=== PATIENT | female | born 1990 | race Two or more races ===

== ENCOUNTER → 2024-02-02 | Outpatient (REF) | payer OTHER | LOC: M PLALAB 14:43 | PROVIDERS: ATTEND Advanced Practice Midwife | DX: O26.899 Other specified pregnancy related conditions, unspecified trimester (principal); R31.9 Hematuria, unspecified; Z3A.00 Weeks of gestation of pregnancy not specified ==

== ENCOUNTER → 2024-02-14 | Outpatient (CLI) | payer OTHER ==
[~2024-02-14] MED LIST: BREAMIS10 MC; PRENTAB9 PO; VENTAER INH
[2024-02-14 15:19] LABS: HEMATOCRIT 36.2 % (36.0-47.0); HEMOGLOBIN 11.9 g/dl (12.0-15.5); MEAN CORPUSCULAR HEMOGLOBIN 28.2 pg (27.0-33.0); MEAN CORPUSCULAR HGB CONC 32.9 g/dl (32.0-36.5); MEAN CORPUSCULAR VOLUME 85.8 fl (80.0-96.0); PLATELET COUNT, AUTOMATED 290 10^3/uL (150-450); RED BLOOD COUNT 4.22 10^6/uL (4.00-5.40); WHITE BLOOD COUNT 13.6 10^3/uL (4.0-10.0)
[2024-02-14 16:22] LABS: HIV 1&2 SCREEN NEGATIVE (NEGATIVE)
[2024-02-14 16:31] LABS: HEPATITIS C VIRUS ABY INDEX 0.02 INDEX (<0.8)
[2024-02-14 19:06] LABS: GC DNA AMPLIFICATION NEGATIVE (NEGATIVE)
== END ==
LOC: M PLALAB 12:57
PROVIDERS: ATTEND Advanced Practice Midwife
DX: O09.512 Supervision of elderly primigravida, second trimester (principal)

== ENCOUNTER 2024-02-26 13:52 | Outpatient (CLI) | payer OTHER ==
[~2024-02-26] VITALS: Ht 157.5 cm; Wt 84.4 kg
[2024-02-26] MEDS ORDERED: PRENTAB9 PO (14:13)
[2024-02-26 14:15] VITALS: BP 127/71
[2024-02-26] MEDS ORDERED: HOME MED LIST COMPLETE! XX SCH (14:15)
[2024-02-26] MEDS ORDERED: BREAMIS10 MC (17:44)
[2024-02-26] MEDS ORDERED: VENTAER INH (17:44)
== END 2024-02-26 14:55 | disposition home or self-care (01) ==
LOC: M LDO 13:52
PROVIDERS: ATTEND Advanced Practice Midwife
DX: O26.892 Other specified pregnancy related conditions, second trimester (principal); O09.512 Supervision of elderly primigravida, second trimester; R06.02 Shortness of breath; R06.2 Wheezing; Z3A.21 21 weeks gestation of pregnancy
CPT/HCPCS: 87486; 87581; 87633; 87798; 94640; 99284; G0463

== ENCOUNTER 2024-02-26 15:02 | Emergency (ER) | payer OTHER ==
[~2024-02-26] VITALS: Ht 157.5 cm; Wt 84.0 kg
[~2024-02-26 15:02] MED LIST changes: -BREAMIS10 MC; -VENTAER INH
[2024-02-26] MEDS: IPRATROPIUM 0.5MG/ALBUTEROL 2.5MG INH SOL UD 3ML (DUONEB) NEB ONE (16:56)
[2024-02-26] MEDS ORDERED: BREAMIS10 MC (17:44)
[2024-02-26] MEDS ORDERED: VENTAER INH (17:44)
[2024-02-26 17:45] VITALS: BP 155/80; TEMP 98.7; O2SAT 99
== END 2024-02-26 17:51 | disposition home or self-care (01) ==
LOC: M ED 15:02
DX: O99.512 Diseases of the respiratory system complicating pregnancy, second trimester (principal); J20.9 Acute bronchitis, unspecified; R06.2 Wheezing; Z3A.21 21 weeks gestation of pregnancy; Z79.52 Long term (current) use of systemic steroids; Z79.899 Other long term (current) drug therapy

== ENCOUNTER 2024-03-15 14:18 | Outpatient (CLI) | payer OTHER ==
[~2024-03-15] VITALS: Ht 157.5 cm; Wt 85.9 kg
[~2024-03-15 14:18] MED LIST changes: +BREAMIS10 MC; +VENTAER INH
[2024-03-15 14:30] VITALS: BP 141/87
[2024-03-15] MEDS: LACTATED RINGER'S 1000 ML IV ONE (15:00)
[2024-03-15] MEDS: KETOROLAC 30 MG/ML 1ML VIAL IV ONE (15:07)
[2024-03-15 15:19] VITALS: BP 121/63
[2024-03-15 15:31] LABS: BASO # 0.1 10^3/uL (0.0-0.2); BASO % 0.3 % (0.0-1.0); EOS # 0.3 10^3/uL (0.0-0.5); EOS % 1.5 % (0.0-3.0); HEMOGLOBIN 11.7 g/dl (12.0-15.5); LYMPH # 2.2 10^3/uL (1.5-5.0); LYMPH % 12.3 % (24.0-44.0); MEAN CORPUSCULAR HEMOGLOBIN 28.4 pg (27.0-33.0); MEAN CORPUSCULAR HGB CONC 33.4 g/dl (32.0-36.5); MONO % 5.3 % (2.0-8.0); NEUTROPHILS % 78.8 % (36.0-66.0); PLATELET COUNT, AUTOMATED 302 10^3/uL (150-450); RED BLOOD COUNT 4.12 10^6/uL (4.00-5.40); WHITE BLOOD COUNT 17.8 10^3/uL (4.0-10.0)
[2024-03-15 15:58] LABS: ALKALINE PHOSPHATASE 64 U/L (35-104); ALT/SGPT 16 U/L (7.0-40); AST/SGOT 21 U/L (<34); BILIRUBIN,TOTAL 0.2 MG/DL (0.3-1.2); BLOOD UREA NITROGEN 11 MG/DL (9-23); CALCIUM LEVEL 10.1 MG/DL (8.5-10.1); CARBON DIOXIDE LEVEL 24 MMOL/L (20-31); CHLORIDE LEVEL 108 MMOL/L (98-107); GLOMERULAR FILTRATION RATE > 60.0 (>60); GLUCOSE, FASTING 87 MG/DL (60-100); POTASSIUM SERUM 3.9 MMOL/L (3.5-5.1); SODIUM LEVEL 140 MMOL/L (136-145); TOTAL PROTEIN 6.8 G/DL (5.7-8.2)
[2024-03-15] MEDS: TAMSULOSIN 0.4 MG CAP PO ONE (18:10)
== END 2024-03-15 18:15 | disposition home or self-care (01) ==
LOC: M LDO 14:18
PROVIDERS: ATTEND Advanced Practice Midwife
DX: O99.612 Diseases of the digestive system complicating pregnancy, second trimester (principal); O09.512 Supervision of elderly primigravida, second trimester; N20.0 Calculus of kidney; Z3A.24 24 weeks gestation of pregnancy
CPT/HCPCS: 36415; 59025; 76775; 80053; 81001; 85025; 96374; G0463; J1885

== ENCOUNTER → 2024-04-11 | Outpatient (CLI) | payer OTHER ==
[2024-04-11 13:05] LABS: HEMATOCRIT 35.1 % (36.0-47.0); HEMOGLOBIN 11.1 g/dl (12.0-15.5); MEAN CORPUSCULAR HEMOGLOBIN 27.3 pg (27.0-33.0); MEAN CORPUSCULAR HGB CONC 31.6 g/dl (32.0-36.5); MEAN CORPUSCULAR VOLUME 86.5 fl (80.0-96.0); PLATELET COUNT, AUTOMATED 298 10^3/uL (150-450); RED BLOOD COUNT 4.06 10^6/uL (4.00-5.40); WHITE BLOOD COUNT 12.2 10^3/uL (4.0-10.0)
[2024-04-11 13:20] LABS: GLUCOSE CHALLENGE TEST 1 HOUR 97 MG/DL (LESS THAN 140)
[2024-04-11 13:50] LABS: HIV 1&2 SCREEN NEGATIVE (NEGATIVE)
[2024-04-11 13:58] LABS: HEPATITIS C VIRUS ABY INDEX 0.02 INDEX (<0.8)
[2024-04-11 14:37] LABS: GC DNA AMPLIFICATION NEGATIVE (NEGATIVE)
== END ==
LOC: M PLALAB 08:56
PROVIDERS: ATTEND Nurse Practitioner Family
DX: O09.522 Supervision of elderly multigravida, second trimester (principal); Z3A.00 Weeks of gestation of pregnancy not specified

== ENCOUNTER → 2024-06-10 | Outpatient (REF) | payer OTHER | LOC: M SFHCWAGY 12:55 | PROVIDERS: ATTEND Nurse Practitioner Family | DX: Z36.89 Encounter for other specified antenatal screening (principal); Z3A.36 36 weeks gestation of pregnancy ==

== ENCOUNTER 2024-06-22 10:22 | Outpatient (CLI) | payer OTHER ==
[~2024-06-22] VITALS: Ht 157.5 cm; Wt 87.8 kg
[2024-06-22] MEDS ORDERED: TUMS500C PO (10:42)
[2024-06-22] MEDS ORDERED: HOME MED LIST COMPLETE! XX SCH (10:45)
[2024-06-22 10:47] VITALS: BP 122/77; O2SAT 97
[2024-06-22 12:23] VITALS: BP 127/80
[2024-06-22 15:31] VITALS: BP 125/65; O2SAT 97
== END 2024-06-22 15:40 | disposition home or self-care (01) ==
LOC: M LDO 10:22
PROVIDERS: ATTEND Obstetrics & Gynecology
DX: O47.1 False labor at or after 37 completed weeks of gestation (principal); O09.523 Supervision of elderly multigravida, third trimester; O99.820 Streptococcus B carrier state complicating pregnancy; B95.1 Streptococcus, group B, as the cause of diseases classified elsewhere; Z3A.38 38 weeks gestation of pregnancy
CPT/HCPCS: 59025; G0463

== ENCOUNTER 2024-06-24 10:21 | Inpatient (IN) | payer OTHER ==
[2024-06-24] VITALS (20 sets, daily range): BP systolic 118–181; BP diastolic 65–93
[~2024-06-24] VITALS: Ht 157.5 cm; Wt 88.4 kg
[~2024-06-24 10:21] MED LIST changes: +PRENATAL VITAMINS CHEWABLE TABLET PO SCH; +TUMS500C PO
[2024-06-24] MEDS ORDERED: ACET-897 PO (10:47)
[2024-06-24] MEDS ORDERED: BENA25CA4 PO (10:47)
[2024-06-24] MEDS ORDERED: HOME MED LIST COMPLETE! XX SCH (10:50)
[2024-06-24] MEDS ORDERED: CARBOPROST TROMETHAMINE 250 MCG/ML AMP IM PRN (11:20)
[2024-06-24] MEDS ORDERED: LIDOCAINE 1% MDV 20ML VIAL INFIL PRN (11:20)
[2024-06-24] MEDS ORDERED: METHYLERGONOVINE MALEATE 0.2MG/ML 1ML VIAL IM PRN (11:20)
[2024-06-24] MEDS ORDERED: OXYTOCIN DRIP 30 UNITS in IV 1 EA IV PRN (11:20)
[2024-06-24] MEDS ORDERED: OXYTOCIN INJ 10UNITS/ML 1ML VIAL IM PRN (11:20)
[2024-06-24] MEDS: PENICILLIN G POTASSIUM 5 MU IV 5 MU in DEXTROSE 5% (D5W) MINI-BAG PLU 100 ML IV STA (11:32)
[2024-06-24] MEDS: LR 1,000 ML IV SCH ×2 (11:33→17:20)
[2024-06-24 11:45] LABS: HEMATOCRIT 34.9 % (36.0-47.0); HEMOGLOBIN 11.8 g/dl (12.0-15.5); MEAN CORPUSCULAR HEMOGLOBIN 27.8 pg (27.0-33.0); MEAN CORPUSCULAR HGB CONC 33.8 g/dl (32.0-36.5); MEAN CORPUSCULAR VOLUME 82.1 fl (80.0-96.0); PLATELET COUNT, AUTOMATED 270 10^3/uL (150-450); RED BLOOD COUNT 4.25 10^6/uL (4.00-5.40); WHITE BLOOD COUNT 13.2 10^3/uL (4.0-10.0)
[2024-06-24 12:15] LABS: URIC ACID 5.6 MG/DL (3.1-7.8)
[2024-06-24 12:17] LABS: LDH LACTATE DEHYDROGENASE 154 U/L (120-246)
[2024-06-24 12:18] LABS: ALT/SGPT < 9 U/L (7.0-40); AST/SGOT 11 U/L (<34); BILIRUBIN,TOTAL 0.3 MG/DL (0.3-1.2); CREATININE FOR GFR 0.57 MG/DL (0.55-1.30); GLOMERULAR FILTRATION RATE > 60.0 (>60)
[2024-06-24 12:46] LABS: HIV 1&2 SCREEN NEGATIVE (NEGATIVE)
[2024-06-24 13:00] LABS: HEPATITIS C VIRUS ABY INDEX 0.11 INDEX (<0.8)
[2024-06-24 13:26] LABS: TOTAL PROTEIN,RANDOM URINE 15.7 MG/DL (0.0-14.0)
[2024-06-24 13:31] LABS: CREATININE,RANDOM URINE 72.9 MG/DL
[2024-06-24] MEDS: PEN G POT 3,000,000 UNIT/50 ML 3,000,000 UNIT in IV 1 EA IV SCH ×2 (15:37→20:01)
[2024-06-24] MEDS ORDERED: LR 1,000 ML IV SCH (16:05)
[2024-06-24] MEDS: OXYTOCIN DRIP 30 UNITS in IV 1 EA IV SCH ×2 (16:31→17:35)
[2024-06-24] MEDS ORDERED: ACETAMINOPHEN 325 MG TAB PO PRN (17:05)
[2024-06-24] MEDS ORDERED: METHYLERGONOVINE MALEATE 0.2 MG TAB PO PRN (17:05)
[2024-06-24] MEDS ORDERED: DOCUSATE SODIUM 100MG CAPSULE PO PRN (17:05)
[2024-06-24] MEDS ORDERED: RHOGAM 300MCG (1500IU) INJ IM SCH (17:05)
[2024-06-24] MEDS ORDERED: DIBUCAINE 1% OINTMENT 30GM TOP PRN (17:05)
[2024-06-24] MEDS ORDERED: IBUPROFEN 600MG TAB PO PRN (17:05)
[2024-06-24] MEDS ORDERED: IBUPROFEN 800 MG TAB PO PRN (17:05)
[2024-06-24] MEDS ORDERED: ACETAMINOPHEN 500 MG TAB PO PRN (17:05)
[2024-06-24] MEDS: LACTATED RINGER'S 1000 ML IV STA (18:27)
[2024-06-24] MEDS ORDERED: LR 500 ML IV PRN (18:55)
[2024-06-24] MEDS ORDERED: NALOXONE INJ 0.4MG/1ML VIAL IV PRN (18:55)
[2024-06-24] MEDS ORDERED: ONDANSETRON 4MG 2ML VIAL IV PRN (18:55)
[2024-06-24] MEDS ORDERED: EPIDURAL/PCA KEYS XX PRN (18:55)
[2024-06-24] MEDS ORDERED: ePHEDrine SULFATE 25 MG/5 ML(5MG/ML) SYRINGE IVP PRN (18:55)
[2024-06-24] MEDS ORDERED: diphenhydrAMINE 50MG/ML VIAL IV PRN (18:55)
[2024-06-24] MEDS: FENTANYL/ROPIVACAINE/NACL BAG 100 ML EPIDURAL SCH (19:11)
[2024-06-25] VITALS (8 sets, daily range): BP systolic 112–138; BP diastolic 54–79; O2SAT 96–98
[2024-06-25] MEDS: TRANEXAMIC ACID INJection 1,000 MG in NS 100 ML IV PRN (01:07)
[2024-06-25] MEDS ORDERED: RHOGAM 300MCG (1500IU) INJ IM SCH (01:40)
[2024-06-25] MEDS ORDERED: METHYLERGONOVINE MALEATE 0.2 MG TAB PO PRN (01:40)
[2024-06-25] MEDS ORDERED: DOCUSATE SODIUM 100MG CAPSULE PO PRN (01:40)
[2024-06-25] MEDS ORDERED: ANUSOL HC CREAM 30GM TOP PRN (01:40)
[2024-06-25] MEDS: DIBUCAINE 1% OINTMENT 30GM TOP PRN (08:35)
[2024-06-25] MEDS: PRENATAL VITAMINS CHEWABLE TABLET PO SCH (08:46)
[2024-06-25] MEDS: IBUPROFEN 600MG TAB PO PRN (19:35)
[2024-06-26] MEDS: ACETAMINOPHEN 500 MG TAB PO PRN (02:08)
[2024-06-26 06:00] VITALS: BP 116/70; O2SAT 98
[2024-06-26] MEDS ORDERED: MEASLES,MUMPS,RUBELLA VACCINE INJ (MMR-II) SC.IMMUN ONE (09:00)
[2024-06-26] MEDS: ACETAMINOPHEN 325 MG TAB PO PRN (09:36)
[2024-06-26 18:00] VITALS: BP 136/82; O2SAT 97
[2024-06-27] MEDS: IBUPROFEN 800 MG TAB PO PRN (05:34)
[2024-06-27 06:00] VITALS: BP 140/81; O2SAT 98
[2024-06-27] MEDS ORDERED: MEASLES,MUMPS,RUBELLA VACCINE INJ (MMR-II) SC.IMMUN ONE (09:00)
== END 2024-06-27 11:45 | disposition home or self-care (01) | DRG 807 ==
LOC: M LDO 10:21 → M LDI 11:17 → M OBS 06-25 04:04
PROVIDERS: ADMIT Advanced Practice Midwife; ATTEND Advanced Practice Midwife
PROC: 10E0XZZ Delivery of Products of Conception, External Approach (ICD-10-PCS; principal; 2024-06-25)
PROC: 0HQ9XZZ Repair Perineum Skin, External Approach (ICD-10-PCS; 2024-06-25)
DX: O70.0 First degree perineal laceration during delivery (principal); Z37.0 Single live birth; Z3A.38 38 weeks gestation of pregnancy; O09.523 Supervision of elderly multigravida, third trimester